=== PATIENT | female | born 1995 | race Caucasian/White ===

== ENCOUNTER 2020-02-27 01:36 | Emergency (ER) | payer MEDICAID, SELFPAY ==
[2020-02-27 01:43] VITALS: BP 117/69; PULSE 88; RESP 16; TEMP 36.4; O2SAT 99; BMI 24.3
--- NOTE | 2020-02-27 02:00 | PC.NURSE ---
UA obtained and sent. MD at bedside for primary eval.
--- NOTE | 2020-02-27 02:04 | CT_ITS ---
EXAMINATION: CT ABDOMEN AND PELVIS WITH CONTRAST CLINICAL INFORMATION: Right lower quadrant pain COMPARISON: 09/01/2018 TECHNIQUE: Multidetector volumetric images were obtained from the superior aspect of the liver through the pubic symphysis following administration 85 mL of Omnipaque 350 intravenous contrast. Sagittal and coronal reformatted images were obtained on the technologist's workstation. Oral contrast: No This CT examination was performed using dose optimization techniques as appropriate, variously including the following: *Automated exposure control *Adjustment of mA and/or kV according to patient size (this includes techniques or standardized protocols for targeted exams where dose is matched to indication/reason for exam; i.e. extremities or head) *Use of iterative reconstruction technique DLP: 361 mGy-cm FINDINGS: LUNG BASES: The visualized lung bases are unremarkable. LIVER, GALLBLADDER, AND BILIARY TREE: The liver is normal in size, shape, and attenuation. No focal hepatic lesion or biliary ductal dilatation is present. Periportal edema is noted, which may reflect patient's hydration status. The gallbladder appears partially contracted, and a component of gallbladder wall thickening versus trace pericholecystic fluid cannot be excluded. PANCREAS: Unremarkable. SPLEEN: Unremarkable. ADRENAL GLANDS: Unremarkable. KIDNEYS AND URETERS: The kidneys are normal in size, shape, and attenuation. No hydronephrosis, hydroureter, or obstructing calculi seen. No perinephric stranding. BLADDER: Unremarkable. GASTROINTESTINAL TRACT: No evidence of bowel obstruction. Assessment for wall thickening in some segments of the colon is limited due to luminal collapse, though no significant pericolonic stranding is seen to strongly suggest a colitis. Appendix appears nondilated. No free fluid or free air is seen. ABDOMINAL WALL: No significant hernia is appreciated. LYMPH NODES: Normal. VASCULAR: Unremarkable. PELVIC VISCERA: Unremarkable. OSSEOUS STRUCTURES: Unremarkable. CT/CT abdomen pelvis w con IMPRESSION: Gallbladder appears partially contracted, and a component of wall thickening or trace pericholecystic fluid is difficult to exclude. If clinically warranted, this may be further assessed with ultrasound. No additional acute findings identified.
--- NOTE | 2020-02-27 02:05 | ED.ABDPAIN ---
HPI - Abdominal Pain General Chief Complaint: Abdominal Pain Stated Complaint: ABD PAIN Time Seen by Provider: 02/27/20 02:04 Source: patient Mode of arrival: ambulatory Limitations: no limitations History of Present Illness MD elicited complaint: abdominal pain Pertinent past history: constipation Onset (ago): day(s) (yesterday AM) Pain Consistency: constant Location: RLQ and suprapubic Severity: moderate Quality: cramping Radiation: none Migration to: no migration Exacerbating factors: vomiting Relieving factors: nothing Associated symptoms: nausea, vomiting and constipation Related Data Previous Rx's Medication Instructions Recorded magnesium citrate 150 ml PO BID PRN #296 ml 02/27/20 ondansetron 4 mg PO Q8H PRN #20 tab 02/27/20 Allergies Allergy/AdvReac Type Severity Reaction Status Date / Time No Known Allergies Allergy Unverified 12/24/19 17:33 Review of Systems Review of Systems Constitutional : No Weight loss, No Fever, No Chills ENT/Mouth : No sore throat, No Rhinorrhea Eyes: No Swelling, No Redness Cardiovascular : No Chest Pain, No SOB, NoEdema Respiratory : No Cough, No Sputum, No Wheezing Gastrointestinal : Positive Nausea, Positive Vomiting, no Diarrhea, positive abdominal Pain, No Hematochezia, No Melena Genitourinary : No Dysuria, No Urinary Frequency, No Hematuria, No Urgency Musculoskeletal : No joint pain, No Myalgias, No Joint Swelling Skin : No Skin Lesions, No rash Neuro : No Weakness, No Numbness, No Dizziness, No Headache Psych : No Anxiety/Panic, No Depression Heme/Lymph: No Bruising, No Lymphadenopathy Endocrine : No Polyuria, No Polydipsia All other systems reviewed and are negative. Physical Exam Vital Signs: Vital Signs: Last Vital Signs Temp 97.6 F 02/27/20 01:43 Pulse 84 02/27/20 03:29 Resp 16 02/27/20 03:29 BP 109/76 02/27/20 03:29 Pulse Ox 99 02/27/20 01:43 Body Mass Index 24.3 Appearance: Alert. Oriented X3. No acute distress. Eyes: Pupils equal, round and reactive to light. ENT: Pharynx normal. Neck: Normal inspection. Neck supple. CVS: Normal heart rate and rhythm. Pulses normal. Respiratory: No respiratory distress. Breath sounds normal. Abdomen: Soft and ttp lower abdomen mostly RLQ no rebound or guarding Skin: Skin warm and dry. Normal skin color. Normal skin turgor. Extremities: No lower extremity edema. No calf ttp Neuro: Oriented X 3. No motor deficit. No sensory deficit. Course Reevaluation(s) Reevaluation #1: pain is lower doubt GB pathology at this time, no Cho's sign, stable for DC MDM - Abdominal Pain MDM Narrative Medical decision making narrative: 24 yo female with no sig PMH does have constipation comes in with vomiting and lower abdominal pain since yesterday, has pain in RLQ at this time will need labs, IVF, IV Toradol for pain, CT scan for appendicitis Lab Data Result diagrams: 02/27/20 02:15 02/27/20 02:15 Labs: Lab Results 02/27/20 02/27/20 02/27/20 Range/Units 01:58 01:58 02:15 WBC 9.3 (4.8-10.8) X10*3/uL RBC 4.48 (4.20-5.50) X10*6/uL Hgb 13.2 (12.0-16.0) g/dl Hct 39.0 (37-47) % MCV 87.1 (80-98) fL MCH 29.5 (27.0-33.0) pg MCHC 33.8 (31.0-35.0) g/dl RDW 12.8 (11.0-16.0) % Plt Count 353 (160-400) X10*3/uL MPV 10.2 (9.4-12.3) fL Immature Gran % (Auto) 0.4 (0.0-0.4) % Neut % (Auto) 81.5 H (45-73) % Lymph % (Auto) 12.0 L (20-40) % [place] % (Auto) 5.3 (2-11) % Eos % (Auto) 0.5 (0-4) % Baso % (Auto) 0.3 (0-2) % Lymph # (Auto) 1.1 L (1.2-4.9) X10*3/uL [place] # (Auto) 0.5 (0.1-1.2) X10*3/uL Eos # (Auto) 0.1 (0.0-0.4) X10*3/uL Baso # (Auto) 0.0 (0.0-0.2) X10*3/uL Abs Immat Gran (auto) 0.04 H (0.00-0.03) X10*3/uL Absolute Neuts (auto) 7.6 (2.0-8.3) X10*3/uL Absolute Nucleated RBC 0.000 (0.0-0.012) X10*3/uL Nucleated RBC % (auto) 0.0 (0.0-0.2) /100WBC Hold Blue Top Sodium (135-145) mmol/L Potassium (3.3-5.1) mmol/l Chloride (96-108) mmol/L Carbon Dioxide (22-29) mmol/L Anion Gap (12-20) BUN (9-16) mg/dL Creatinine (0.5-1.4) mg/dL Estim Creat Clear Calc Estimated GFR Random Glucose (60-115) mg/dL Calcium (8.4-10.2) mg/dL Magnesium (1.6-2.6) mg/dL Total Bilirubin (0.0-1.0) mg/dL Direct Bilirubin (0.0-0.5) mg/dL AST (5-31) U/L ALT (0-31) U/L Alkaline Phosphatase (39-117) U/L Total Protein (6.5-8.0) g/dL Albumin (3.5-5.0) g/dL Lipase (8-78) U/L Urine Color YELLOW Urine Appearance CLEAR Urine pH 6.0 (5.0-8.0) Ur Specific [place] 1.025 (1.005-1.025) Urine Protein NEG (NEG-TRACE) MG/DL Urine Glucose (UA) NEG (NEG) MG/DL Urine Ketones NEG (NEG) MG/DL Urine Blood NEG (NEG) Urine Nitrite NEG (NEG) Ur Leukocyte Esterase NEG (NEG) Urine Test NEGATIVE (NEGATIVE) 02/27/20 02/27/20 Range/Units 02:15 02:15 WBC (4.8-10.8) X10*3/uL RBC (4.20-5.50) X10*6/uL Hgb (12.0-16.0) g/dl Hct (37-47) % MCV (80-98) fL MCH (27.0-33.0) pg MCHC (31.0-35.0) g/dl RDW (11.0-16.0) % Plt Count (160-400) X10*3/uL MPV (9.4-12.3) fL Immature Gran % (Auto) (0.0-0.4) % Neut % (Auto) (45-73) % Lymph % (Auto) (20-40) % [place] % (Auto) (2-11) % Eos % (Auto) (0-4) % Baso % (Auto) (0-2) % Lymph # (Auto) (1.2-4.9) X10*3/uL [place] # (Auto) (0.1-1.2) X10*3/uL Eos # (Auto) (0.0-0.4) X10*3/uL Baso # (Auto) (0.0-0.2) X10*3/uL Abs Immat Gran (auto) (0.00-0.03) X10*3/uL Absolute Neuts (auto) (2.0-8.3) X10*3/uL Absolute Nucleated RBC (0.0-0.012) X10*3/uL Nucleated RBC % (auto) (0.0-0.2) /100WBC Hold Blue Top SEE NOTE Sodium 139 (135-145) mmol/L Potassium 3.7 (3.3-5.1) mmol/l Chloride 102 (96-108) mmol/L Carbon Dioxide 31 H (22-29) mmol/L Anion Gap 10 L (12-20) BUN 15 (9-16) mg/dL Creatinine 0.86 (0.5-1.4) mg/dL Estim Creat Clear Calc 82.2 Estimated GFR > 60 Random Glucose 116 H (60-115) mg/dL Calcium 9.2 (8.4-10.2) mg/dL Magnesium 2.1 (1.6-2.6) mg/dL Total Bilirubin 0.2 (0.0-1.0) mg/dL Direct Bilirubin < 0.2 (0.0-0.5) mg/dL AST 11 (5-31) U/L ALT < 6 (0-31) U/L Alkaline Phosphatase 54 (39-117) U/L Total Protein 7.4 (6.5-8.0) g/dL Albumin 4.7 (3.5-5.0) g/dL Lipase 37 (8-78) U/L Urine Color Urine Appearance Urine pH (5.0-8.0) Ur Specific [place] (1.005-1.025) Urine Protein (NEG-TRACE) MG/DL Urine Glucose (UA) (NEG) MG/DL Urine Ketones (NEG) MG/DL Urine Blood (NEG) Urine Nitrite (NEG) Ur Leukocyte Esterase (NEG) Urine Test (NEGATIVE) Discharge Plan Discharge Clinical Impression: Abdominal pain Patient Disposition: Home, Self-Care Instructions: Abdominal Pain (ED) Additional Instructions: return to ED for any worsening symptoms or concerns Prescriptions: New ondansetron 4 mg tablet,disintegrating 4 mg PO Q8H PRN (Reason: nausea and vomiting) Qty: 20 RF: 0 magnesium citrate Solution 150 ml PO BID PRN (Reason: constipation) Qty: 296 RF: 0 Referrals: [facility] [Primary Care Provider] - 2 days (if not better) [facility] Past Medical History Attestation statement: The following information was validated with the patient. Medical History No active medical problems Social History Social History (Updated 02/27/20 @ 02:06 by Millicent Francisco DO) Alcohol intake: never Smoking Status: Never smoker Advance Directives: No
[2020-02-27 02:07] LABS: Glucose Urine UA NEG (NEG); Leukocyte Esterase Urine NEG (NEG); Nitrite Urine NEG (NEG); Specific Gravity - Urine 1.025 (1.005-1.025); Urine Blood NEG (NEG); Urine Ketones NEG (NEG); Urine Protein NEG (NEG-TRACE)
[2020-02-27 02:08] LABS: Appearance Urine CLEAR; Color Urine YELLOW
[2020-02-27 02:09] LABS: UPreg QC Valid YES; Urine Pregnancy NEGATIVE (NEGATIVE)
[2020-02-27] MEDS: Ketorolac Tromethamine 30 MG/ML VIAL IVPUSH (02:16)
[2020-02-27] MEDS: 0.9 % Sodium Chloride 1,000 ML 999 ML IVCONT (02:16)
[2020-02-27] MEDS: ondansetron HCL 4 MG/2 ML VIAL IVPUSH (02:16)
--- NOTE | 2020-02-27 02:20 | PC.NURSE ---
IV established, labs obtained. IVF infusing per EMAR, pt medicated per EMAR. Continue to monitor.
[2020-02-27 02:21] LABS: Basophils Percent Auto 0.3 % (0-2); Eosinophils Absolute Auto 0.1 X10*3/uL (0.0-0.4); Eosinophils Percent Auto 0.5 % (0-4); Hemoglobin 13.2 g/dl (12.0-16.0); Imm Gran Abs Auto 0.04 X10*3/uL (0.00-0.03); Imm Gran Pct Auto 0.4 % (0.0-0.4); Lymphocytes Absolute Auto 1.1 X10*3/uL (1.2-4.9); Mean Corpuscular HGB Conc 33.8 g/dl (31.0-35.0); Mean Corpuscular Hemoglobin 29.5 pg (27.0-33.0); Mean Corpuscular Volume 87.1 fL (80-98); Mean Platelet Volume 10.2 fL (9.4-12.3); Monocytes Absolute Auto 0.5 X10*3/uL (0.1-1.2); Monocytes Percent Auto 5.3 % (2-11); Neutrophils Absolute Auto 7.6 X10*3/uL (2.0-8.3); Neutrophils Percent Auto 81.5 % (45-73); Platelet Count 353 X10*3/uL (160-400); Red Blood Count 4.48 X10*6/uL (4.20-5.50); Red Cell Distribution Width 12.8 % (11.0-16.0); White Blood Count 9.3 X10*3/uL (4.8-10.8)
[2020-02-27 02:23] LABS: MANUAL DIFF FLAG NO
[2020-02-27 02:56] LABS: Alanine Aminotransferase < 6 U/L (0-31); Albumin Level 4.7 g/dL (3.5-5.0); Alkaline Phosphatase 54 U/L (39-117); Anion Gap 10 (12-20); Aspartate Amino Transferase 11 U/L (5-31); Bilirubin Direct < 0.2 mg/dL (0.0-0.5); Bilirubin Total 0.2 mg/dL (0.0-1.0); Blood Urea Nitrogen 15 mg/dL (9-16); Calcium 9.2 mg/dL (8.4-10.2); Carbon Dioxide 31 mmol/L (22-29); Chloride 102 mmol/L (96-108); Creatinine Clr Calc Pharmacy 82.2; Estimated Glomerular Filt Rate > 60; Glucose Random 116 mg/dL (60-115); Lipase 37 U/L (8-78); Magnesium 2.1 mg/dL (1.6-2.6); Potassium 3.7 mmol/l (3.3-5.1); Sodium 139 mmol/L (135-145); Total Protein 7.4 g/dL (6.5-8.0)
--- NOTE | 2020-02-27 03:27 | PC.NURSE ---
Off to CT on hospital bed.
[2020-02-27 03:29] VITALS: BP 109/76; PULSE 84; RESP 16
[2020-02-27] MEDS: iohexoL 350 MG/ML 100 ML INFUS..BTL IV (03:42)
--- NOTE | 2020-02-27 03:51 | PC.NURSE ---
Pt reports relief of nausea, states her pain has only decreased to a 6/10. Pt ambulatory to the bathroom with a ramirez/steady gait. Awaiting CT results. Continue to monitor.
[2020-02-27 05:09] VITALS: BP 106/61; PULSE 71; RESP 16; TEMP 36.9
== END 2020-02-27 05:14 | disposition home or self-care (01) ==
PROVIDERS: Emergency Provider Emergency Medicine
DX: R10.31 Right lower quadrant pain (principal); Z79.899 Other long term (current) drug therapy
CPT/HCPCS: 36415; 74177; 80048; 80076; 81003; 81025; 83690; 83735; 85025; 96361; 96374; 96375; 99284; J1885; J2405; Q9967

== ENCOUNTER 2020-03-03 07:44 | Inpatient (IN) | payer MEDICAID, SELFPAY ==
[2020-03-03] VITALS (7 sets, daily range): BP systolic 97–131; BP diastolic 57–78; PULSE 72–84; RESP 14–18; TEMP 36.4–37.1; O2SAT 98–100; BMI 24.0
--- NOTE | 2020-03-03 08:23 | US_ITS ---
EXAMINATION: US ABDOMEN COMPLETE CLINICAL INFORMATION: Epigastric and abdominal pain. Nausea and vomiting.. COMPARISON: CT abdomen and pelvis from 02/27/2020. TECHNIQUE: Real-time imaging of the abdominal viscera. FINDINGS: PANCREAS: The pancreatic tail is obscured by bowel gas. The visualized portions of the pancreas are normal. ABDOMINAL AORTA: The proximal, mid, and distal segments are normal in caliber. INFERIOR VENA CAVA: Visualized portions are normal. LIVER: Liver has normal size, contour and parenchymal echotexture. No focal liver lesion or intrahepatic bile duct dilatation. GALLBLADDER: The gallbladder is physiologically distended. Several small mobile, nonshadowing, noncalcified stones are present within the gallbladder lumen. No gallbladder wall thickening or pericholecystic fluid. COMMON BILE DUCT: Normal in caliber measuring 0.3 cm in diameter. RIGHT KIDNEY: Normal. No hydronephrosis. No renal calculi or focal parenchymal lesions. The kidney measures 10.5 cm in maximum dimension. LEFT KIDNEY: Normal. No hydronephrosis. No renal calculi or focal parenchymal lesions. The kidney measures 10.9 cm in maximum dimension. SPLEEN: Normal. The spleen measures 10 cm in maximum dimension. FREE FLUID: None. US/US abdomen complete IMPRESSION: No acute imaging findings. Cholelithiasis without gallbladder wall thickening or pericholecystic fluid. No imaging evidence of gallbladder inflammation. No biliary tract obstruction.
[2020-03-03 08:38] LABS: Basophils Percent Auto 0.3 % (0-2); Eosinophils Percent Auto 0.3 % (0-4); Hematocrit 37.9 % (37-47); Hemoglobin 12.5 g/dl (12.0-16.0); Imm Gran Abs Auto 0.03 X10*3/uL (0.00-0.03); Imm Gran Pct Auto 0.2 % (0.0-0.4); Lymphocytes Percent Auto 7.9 % (20-40); Mean Corpuscular Volume 87.9 fL (80-98); Mean Platelet Volume 10.1 fL (9.4-12.3); Monocytes Absolute Auto 0.6 X10*3/uL (0.1-1.2); Monocytes Percent Auto 4.4 % (2-11); Neutrophils Absolute Auto 10.7 X10*3/uL (2.0-8.3); Neutrophils Percent Auto 86.9 % (45-73); Platelet Count 332 X10*3/uL (160-400); Red Blood Count 4.31 X10*6/uL (4.20-5.50); Red Cell Distribution Width 12.6 % (11.0-16.0); White Blood Count 12.4 X10*3/uL (4.8-10.8)
[2020-03-03 08:46] LABS: MANUAL DIFF FLAG NO
[2020-03-03 08:50] LABS: INTERNATIONAL NORM RATIO 1.1 (0.9-1.1); Prothrombin Time 13.5 SEC (10.8-13.0)
[2020-03-03] MEDS: 0.9 % Sodium Chloride 1,000 ML 999 ML IVCONT (08:50)
[2020-03-03] MEDS: ondansetron HCL 4 MG/2 ML VIAL IVPUSH ×2 (08:50→18:29)
[2020-03-03] MEDS: Ketorolac Tromethamine 15 MG/ML VIAL 30 MG IV (08:51)
--- NOTE | 2020-03-03 08:54 | ED_ITS ---
HPI - Abdominal Pain General Chief Complaint: Abdominal Pain Stated Complaint: abd pain Time Seen by Provider: 03/03/20 08:15 Source: patient Mode of arrival: ambulatory Limitations: no limitations History of Present Illness HPI narrative: 24yoF c No Sig PMHx presenting to the ED c c/o epigastric abd pain c associated N/V that started lastnight. Radiating to back and b/l legs. Reports she ate a slice of pizza last night. Was seen here on 02/27/20 for same complaint and had labs and CT scan of abd/pelvis. sent home with symptomatic treatment reports her pain had resolved and returned again last night. Denies any other additional complaints or concerns at this time. Related Data Previous Rx's Medication Instructions Recorded magnesium citrate 150 ml PO BID PRN #296 ml 02/27/20 ondansetron 4 mg PO Q8H PRN #20 tab 02/27/20 ibuprofen 800 mg PO Q8H PRN #14 tab 03/03/20 ondansetron HCl [Zofran] 4 mg PO Q6H PRN #14 tab 03/03/20 oxycodone 5 mg PO Q6H PRN #10 tab 03/03/20 Allergies Allergy/AdvReac Type Severity Reaction Status Date / Time No Known Allergies Allergy Verified 03/03/20 07:56 Review of Systems Review of Systems Constitutional : No Weight loss, No Fever, No Chills, No Night Sweats, No Fatigue, No Malaise Cardiovascular : No Chest Pain, No SOB Respiratory : No Cough, No Sputum, No Wheezing, No Dyspnea Gastrointestinal : + Nausea, + Vomiting, No Diarrhea, + abdominal Pain, No Hematochezia, No Melena Genitourinary : No irregular bleeding, No Dysuria, No Urinary Frequency, No Hematuria,No Urinary Incontinence, No Urgency, No Flank Pain Musculoskeletal : No joint pain, No Myalgias, No Joint Swelling Skin : No Skin Lesions, No rash Neuro : No Weakness, No Numbness, No Paresthesias, No Loss of Consciousness, No Dizziness, No Headache Psych : No Social Issues, Heme/Lymph:No Lymphadenopathy Yes all other systems are reviewed and are negative Physical Exam Vital Signs: Vital Signs: Last Vital Signs Temp 98.2 F 03/03/20 10:00 Pulse 74 03/03/20 12:08 Resp 14 03/03/20 12:08 BP 103/67 11/26/20 12:08 Pulse Ox 99 03/03/20 12:08 Body Mass Index 24.0 vital signs have been reviewed as normal and appeared to be correct. Blood pressure normal. Heart rate normal. Respiration rate normal. Temperature normal. Oxygen saturation normal. Appearance: Alert. Oriented X3. No acute distress. Head: Normal external exam. Normocephalic. Eyes: PERRLA. EOMI. Conjunctiva and sclera normal. Eyelids normal. ENT: EAC normal. TM's Normal. Pharynx normal. Uvula midline. Moist mucous membranes. Neck: Normal inspection. Neck supple. FROM. No adenopathy. Thyroid Normal. No meningeal signs. No neck mass noted. CVS: Normal heart rate and rhythm. Heart sound normal. No murmurs noted. Pulses normal throughout. Respiratory: No respiratory distress. Painless inspiration. Breath sounds normal. No wheezes/rales/rhonchi noted. Chest nontender. No accessory muscle usage noted or decreased air movement noted. Abdomen: Soft and TTP to epigastric area of abd. Bowel sounds normal in all 4 quadrants. No distention noted. No organomegaly noted. No visible injury noted. Back: No CVA tenderness. Full range of motion noted. Skin: Skin warm and dry. Normal skin color. Normal skin turgor. No rashes/lesi ons/lacerations noted. Extremities: Extremities exhibit normal range of motion. Extremities nontender. Neuro: Oriented X 3. No motor deficit. No sensory deficit. Reflexes normal. Course Course Course Narrative: 8:30AM - 24yoF c No Sig PMHx presenting to the ED c c/o epigastric abd pain c associ ated N/V that started lastnight. Radiating to back and b/l legs. - Concern for Cholecystitis. - Plan: Labs, UA, UHCG, US of abd. Provide 1 Liter of IVF's a, 4 mg of zofran and 30 mg of toradol then re-evaluate. Reevaluation(s) Reevaluation #1: white blood cell count at 12,000 otherwise all other labs are within normal limits including lipase. ultrasound of abdomen revealed cholelithiasis not acute cholecystitis. Therefore patient was complaining of 7/10 pain still therefore gave her 5 mg of oxycodone. Consulted with Dr. Rudd the General Surgeon who will come by and say hi to the patient plan will be to schedule outpatient surgery for gallbladder. Will end up being discharged on symptomatic treatment and antiemetics and surgical referral. Patient understands agrees with this plan. Time: 12:24 Reevaluation #2: patient told the general surgeon that she was not comfortable and her pain was not controlled when she would rather stay for pain control therefore patient will be admitted under General surgery by Dr. Rudd. Patient understands agrees with this plan. Time: 12:56 MDM - Abdominal Pain Medical Records Attestation: I reviewed the patient's medical records. Lab Data Attestation: I reviewed the patient's lab results. Result diagrams: 03/03/20 08:28 03/03/20 08:28 Labs: Lab Results 03/03/20 03/03/20 03/03/20 Range/Units 08:28 08:28 08:28 WBC 12.4 H (4.8-10.8) X10*3/uL RBC 4.31 (4.20-5.50) X10*6/uL Hgb 12.5 (12.0-16.0) g/dl Hct 37.9 (37-47) % MCV 87.9 (80-98) fL MCH 29.0 (27.0-33.0) pg MCHC 33.0 (31.0-35.0) g/dl RDW 12.6 (11.0-16.0) % Plt Count 332 (160-400) X10*3/uL MPV 10.1 (9.4-12.3) fL Immature Gran % (Auto) 0.2 (0.0-0.4) % Neut % (Auto) 86.9 H (45-73) % Lymph % (Auto) 7.9 L (20-40) % [place] % (Auto) 4.4 (2-11) % Eos % (Auto) 0.3 (0-4) % Baso % (Auto) 0.3 (0-2) % Lymph # (Auto) 1.0 L (1.2-4.9) X10*3/uL [place] # (Auto) 0.6 (0.1-1.2) X10*3/uL Eos # (Auto) 0.0 (0.0-0.4) X10*3/uL Baso # (Auto) 0.0 (0.0-0.2) X10*3/uL Abs Immat Gran (auto) 0.03 (0.00-0.03) X10*3/uL Absolute Neuts (auto) 10.7 H (2.0-8.3) X10*3/uL Absolute Nucleated RBC 0.000 (0.0-0.012) X10*3/uL Nucleated RBC % (auto) 0.0 (0.0-0.2) /100WBC PT 13.5 H (10.8-13.0) SEC INR 1.1 (0.9-1.1) Sodium 138 (135-145) mmol/L Potassium 3.5 (3.3-5.1) mmol/l Chloride 102 (96-108) mmol/L Carbon Dioxide 28 (22-29) mmol/L Anion Gap 12 (12-20) BUN 14 (9-16) mg/dL Creatinine 0.72 (0.5-1.4) mg/dL Estim Creat Clear Calc 97.5 Estimated GFR > 60 Random Glucose 112 (60-115) mg/dL Calcium 8.8 (8.4-10.2) mg/dL Magnesium 2.1 (1.6-2.6) mg/dL Total Bilirubin 0.2 (0.0-1.0) mg/dL Direct Bilirubin < 0.2 (0.0-0.5) mg/dL AST 9 (5-31) U/L ALT < 6 (0-31) U/L Alkaline Phosphatase 48 (39-117) U/L Total Protein 7.1 (6.5-8.0) g/dL Albumin 4.5 (3.5-5.0) g/dL Lipase 45 (8-78) U/L Imaging Data Abdominal ultrasound: Attestation: I personally reviewed and interpreted this imaging study as follows: Radiologist's impression: IMPRESSION: No acute imaging findings. Cholelithiasis without gallbladder wall thickening or pericholecystic fluid. No imaging evidence of gallbladder inflammation. No biliary tract obstruction. Critical Care Time Critical Care Time Critical Care Time: Yes Total Critical Care Time: 60 Attestation: I personally attest to this time spent taking care of the patient Discharge Plan Discharge Clinical Impression: Cholelithiasis Patient Disposition: Admitted As Inpatient Instructions: Gallstones (ED) Prescriptions: New oxycodone 5 mg tablet 5 mg PO Q6H PRN (Reason: pain) Qty: 10 RF: 0 ibuprofen 800 mg tablet 800 mg PO Q8H PRN (Reason: pain) Qty: 14 RF: 0 ondansetron HCl [Zofran] 4 mg tablet 4 mg PO Q6H PRN (Reason: nausea and vomiting) Qty: 14 RF: 0 No Action ondansetron 4 mg tablet,disintegrating 4 mg PO Q8H PRN (Reason: nausea and vomiting) Qty: 20 RF: 0 magnesium citrate Solution 150 ml PO BID PRN (Reason: constipation) Qty: 296 RF: 0 Referrals: Tod Rudd MD [Physician] - 2 days Stand Alone Forms: Work/School Release Print Language: Armenian [facility] Past Medical History Attestation statement: The following information was validated with the patient. Medical History No active medical problems Social History Social History Alcohol intake: never Smoking Status: Never smoker Use of substances other than those prescribed or required for medical reasons: No Advance Directives: No Advance Directives Information Provided: Yes
[2020-03-03 09:11] LABS: Alanine Aminotransferase < 6 U/L (0-31); Albumin Level 4.5 g/dL (3.5-5.0); Alkaline Phosphatase 48 U/L (39-117); Anion Gap 12 (12-20); Aspartate Amino Transferase 9 U/L (5-31); Bilirubin Direct < 0.2 mg/dL (0.0-0.5); Bilirubin Total 0.2 mg/dL (0.0-1.0); Blood Urea Nitrogen 14 mg/dL (9-16); Calcium 8.8 mg/dL (8.4-10.2); Carbon Dioxide 28 mmol/L (22-29); Chloride 102 mmol/L (96-108); Creatinine Clr Calc Pharmacy 97.5; Estimated Glomerular Filt Rate > 60; Glucose Random 112 mg/dL (60-115); Lipase 45 U/L (8-78); Magnesium 2.1 mg/dL (1.6-2.6); Potassium 3.5 mmol/l (3.3-5.1); Sodium 138 mmol/L (135-145); Total Protein 7.1 g/dL (6.5-8.0)
[2020-03-03] MEDS: oxyCODONE HCl Immed Release 5 MG TABLET PO (12:07)
--- NOTE | 2020-03-03 12:50 | PC.NURSE ---
dr. galarza at bedside pt aware of plan of care for admission to hosp.
--- NOTE | 2020-03-03 13:02 | PM.HPGS ---
History of Present Illness History of Present Illness Date of Service: 03/03/20 Chief complaint: abd pain Narrative: Tonya Martínez is a 24 year old female who came to the ED because of abdominal pain. She points to the area above her umbilicus on the midline where her pain is. She says she was in the ED as well last whic was 5 days ago for a similar problem. She had a CT scan done which did not suggest any pathology so she was discharged from the ED. She continued to have pain periodically at home so she came back today. She deneis any aggravating or precipitating factors. She denies any nausea or vomitting. She had an US here today whcih showed gallstones without cholecystitis. Review of Systems Constitutional: Constitutional: Denies chills and Denies fever(s) Cardiovascular: Cardiovascular: Denies chest pain, Denies dyspnea and Denies dyspnea on exertion Respiratory: Respiratory: Denies cough, Denies dyspnea and Denies dyspnea on exertion Gastrointestinal: Gastrointestinal: Denies hematochezia and Denies change in bowel habits Genitourinary: Genitourinary: Denies hematuria Musculoskeletal: Musculoskeletal: Denies back pain and Denies limited range of motion Neurologic: Denies focal weakness and Denies convulsions Psychiatric: Psychiatric: Denies depression and Denies mood swings PMFSH Past Medical History Medical History No active medical problems Family History Family history: reviewed and not pertinent Social History Social History Alcohol intake: never Smoking Status: Never smoker Use of substances other than those prescribed or required for medical reasons: No Advance Directives: No Advance Directives Information Provided: Yes Meds Allergies Allergy/AdvReac Type Severity Reaction Status Date / Time No Known Allergies Allergy Verified 03/03/20 07:56 Physical Exam Vital Signs: Vital Signs: Last Vital Signs Temp 98.2 F 03/03/20 10:00 Pulse 74 03/03/20 12:08 Resp 14 03/03/20 12:08 BP 103/67 03/03/20 12:08 Pulse Ox 99 03/03/20 12:08 Body Mass Index 24.0 Const: General: comfortable and no acute distress Orientation/consciousness: patient oriented x3 Neck: Neck: Yes no lymphadenopathy Resp: Auscultation: clear to auscultation bilaterally Cardio: Rhythm: regular rhythm GI: Other: no RUQ tenderness, no Cho's sign, mild tenderness on area above umbilicus Palpation (GI): Soft to palpation, nontender and no guarding Neuro: General: patient oriented x3 Results Results Labs: Short CBC 03/03/20 Range/Units 08:28 WBC 12.4 H (4.8-10.8) X10*3/uL Hgb 12.5 (12.0-16.0) g/dl Hct 37.9 (37-47) % Plt Count 332 (160-400) X10*3/uL BMP 03/03/20 08:28 Sodium 138 Potassium 3.5 Chloride 102 Carbon Dioxide 28 BUN 14 Creatinine 0.72 Calcium 8.8 Liver Function 03/03/20 Range/Units 08:28 Total Bilirubin 0.2 (0.0-1.0) mg/dL Direct Bilirubin < 0.2 (0.0-0.5) mg/dL AST 9 (5-31) U/L ALT < 6 (0-31) U/L Alkaline Phosphatase 48 (39-117) U/L Albumin 4.5 (3.5-5.0) g/dL CT scan - pelvis: image reviewed Abdominal ultrasound report/results: image reviewed Assessment and Plan (1) Cholelithiasis: Status: Acute 24F with abdominal pain, above the umbilicus, with an US showing gallstones without cholecystitis. She does have some mild leukocytosis but otherwise does not have signficant tenderness or Cho's sign. Her pain is quite atypical for gallbladder disease, but she says she does not want to go home now in view of her anxiety about the pain coming back. I explained to her that if her pain persists, we may proceed with cholecystectomy in the absence of any other pathology. I reviewed with her the technique of laparoscopic cholecystectomy, possible open. I reviewed with her the risks including but not limited to bleeding, infections, bowel injury, injury to the bile duct and liver, as well as the benefits and alternatives. We will revaluate her tomorrow morning and review her options with her. I will follow her LFTs as well, along with her WBC. I will hold off on antibiotics at this time. I have discussed the above with her mother over the phone.
[2020-03-03] MEDS: Omeprazole 20 MG CAPSULE.DR PO ×2 (13:33→19:26)
[2020-03-03] MEDS: Lactated Ringers 1,000 ML 80 ML IVCONT ×2 (13:38→23:47)
--- NOTE | 2020-03-03 14:27 | PC.NURSE ---
nurse to nurse given to ronit esposito).
[2020-03-03 14:52] LABS: COVID-19 Test Negative (Negative)
[2020-03-03] MEDS: Morphine Sulfate 2 MG/ML CARTRIDGE 1 MG IVPUSH ×2 (16:28→19:32)
[2020-03-04] VITALS (11 sets, daily range): BP systolic 94–137; BP diastolic 44–70; PULSE 68–99; RESP 16–28; TEMP 36.4–36.9; O2SAT 96–99
[2020-03-04 01:52] LABS: Alanine Aminotransferase < 6 U/L (0-31); Albumin Level 3.9 g/dL (3.5-5.0); Alkaline Phosphatase 41 U/L (39-117); Aspartate Amino Transferase 9 U/L (5-31); Bilirubin Direct 0.2 mg/dL (0.0-0.5); Bilirubin Total 0.3 mg/dL (0.0-1.0); Total Protein 6.1 g/dL (6.5-8.0)
[2020-03-04] MEDS: Morphine Sulfate 2 MG/ML CARTRIDGE 1 MG IVPUSH ×4 (07:54→22:51)
[2020-03-04 08:03] LABS: Amylase 39 U/L (28-100); Anion Gap 13 (12-20); Blood Urea Nitrogen 5 mg/dL (9-16); Calcium 8.3 mg/dL (8.4-10.2); Carbon Dioxide 26 mmol/L (22-29); Chloride 103 mmol/L (96-108); Creatinine Clr Calc Pharmacy 104.8; Estimated Glomerular Filt Rate > 60; Glucose Random 61 mg/dL (60-115); Potassium 3.8 mmol/l (3.3-5.1); Sodium 138 mmol/L (135-145)
--- NOTE | 2020-03-04 08:15 | PM.EVENT ---
Event Note Date of Service: 03/04/20 Event Note: describes persistent epigastric pain, entire area above umbilicus Ct does not show any other pathology except for gallstones no signs of CBD osbtruction, pancreatic inflammation bili normal reviewed with her option of lap kelby, as well as risks, benefits and alternatives she wants to proceed she understands small chance her pain may not be secondary to gallbladder disease mother Jaqueline porfirio
--- NOTE | 2020-03-04 08:37 | MHC.CM.PN ---
Female 24 DX Cholilithiasis. Patient is scheduled for surgery today (Lap Choli). She lives with family. She is independent all functional mobility. DP home with family. No services required. Family will provided transport home. NO HCP on file. Pt educated on HCP. She declines at this time. The Patient was instructed that a HCP can be completed at any time during hospitalization. CM will follow.
--- NOTE | 2020-03-04 08:51 | HO.ANESPROP2 ---
FORMERLY [facility] Past Medical History Medical History No active medical problems Social History Social History Housing: Apartment Do you presently have visiting nurse or other home services: No Alcohol intake: never Smoking Status: Never smoker Use of substances other than those prescribed or required for medical reasons: No Currently Displaying Signs/Symptoms of Drug Intoxication Withdrawal: No Have you been hit, kicked, punched, or otherwise hurt by someone within the past year? If so, by whom?: No Do you feel safe in your current relationship?: No Current Relationship Is there a partner from a previous relationship who is making you feel unsafe now?: No Are you made to feel afraid or neglected: No Advance Directives: No Advance Directives Information Provided: Yes Do you have thoughts of harming others: None Do you have a plan to hurt others: No Plan Recently lost weight without trying: No service: No Current occupational status: unemployed Meds Allergies Allergy/AdvReac Type Severity Reaction Status Date / Time No Known Allergies Allergy Verified 03/03/20 07:56 Home Medications Medication Instructions Recorded Confirmed Type No Known Home Meds 03/03/20 03/03/20 History Exam Exam Date and Time: March 04, 2020 0851 Height,Weight and Vital Signs: Height 5 ft 1 in Weight 57.606 kg Last Vital Signs Temp 98.0 F 03/04/20 08:30 Pulse 68 03/04/20 08:30 Resp 16 03/04/20 08:30 BP 112/70 03/04/20 08:30 Pulse Ox 99 03/04/20 08:30 Pertinent Lab Results Pertinent Lab Results: Laboratory Tests 03/03/20 03/03/20 03/03/20 08:28 08:28 08:28 WBC 12.4 H RBC 4.31 Hgb 12.5 Hct 37.9 MCV 87.9 MCH 29.0 MCHC 33.0 RDW 12.6 Plt Count 332 MPV 10.1 Immature Gran % (Auto) 0.2 Neut % (Auto) 86.9 H Lymph % (Auto) 7.9 L [place] % (Auto) 4.4 Eos % (Auto) 0.3 Baso % (Auto) 0.3 Lymph # (Auto) 1.0 L [place] # (Auto) 0.6 Eos # (Auto) 0.0 Baso # (Auto) 0.0 Abs Immat Gran (auto) 0.03 Absolute Neuts (auto) 10.7 H Absolute Nucleated RBC 0.000 Nucleated RBC % (auto) 0.0 PT 13.5 H INR 1.1 Sodium 138 Potassium 3.5 Chloride 102 Carbon Dioxide 28 Anion Gap 12 BUN 14 Creatinine 0.72 Estim Creat Clear Calc 97.5 Estimated GFR > 60 Random Glucose 112 Calcium 8.8 Magnesium 2.1 Total Bilirubin 0.2 Direct Bilirubin < 0.2 AST 9 ALT < 6 Alkaline Phosphatase 48 Total Protein 7.1 Albumin 4.5 Amylase Lipase 45 COVID-19 (DIETER) COVID-19 Clin Com 03/03/20 03/04/20 03/04/20 14:30 01:13 05:21 WBC RBC Hgb Hct MCV MCH MCHC RDW Plt Count MPV Immature Gran % (Auto) Neut % (Auto) Lymph % (Auto) [place] % (Auto) Eos % (Auto) Baso % (Auto) Lymph # (Auto) [place] # (Auto) Eos # (Auto) Baso # (Auto) Abs Immat Gran (auto) Absolute Neuts (auto) Absolute Nucleated RBC Nucleated RBC % (auto) PT INR Sodium 138 Potassium 3.8 Chloride 103 Carbon Dioxide 26 Anion Gap 13 BUN 5 L D Creatinine 0.67 Estim Creat Clear Calc 104.8 Estimated GFR > 60 Random Glucose 61 D Calcium 8.3 L Magnesium Total Bilirubin 0.3 Direct Bilirubin 0.2 AST 9 ALT < 6 Alkaline Phosphatase 41 Total Protein 6.1 L Albumin 3.9 Amylase 39 Lipase COVID-19 (DIETER) Negative COVID-19 Clin Com See Note Airway Mallampati Class: I TM Dist: >3cm Neck ROM: Full Heart: RRR Lungs: CTA
--- NOTE | 2020-03-04 10:15 | PM.OP ---
Brief Operative Note Date of Service: 03/04/20 Pre-op diagnosis: gallstones Post-op diagnosis: same Procedure: laparoscopic cholecystectomy Surgeon: Tod Rudd MD Anesthesia: GETA Estimated blood loss (mL): 20 Pathology: other (GB) Condition: stable Disposition: PACU
--- NOTE | 2020-03-04 10:40 | PM.EVENT ---
Event Note Date of Service: 03/04/20 Event Note: seen postop underwent lap kelby earlier - uneventful stable VS looks well pain mgt likely home tomorrow mother Jaqueline updated by phone
[2020-03-04] MEDS: oxyCODONE HCl Immed Release 5 MG TABLET PO (10:55)
--- NOTE | 2020-03-04 11:49 | OP_ITS ---
SURGEON: Tod Rudd MD INDICATIONS: The patient is a 24-year-old female who has had periodic epigastric pain for about 5-6 days. She actually had been in the ER 5 days prior to her current admission because of her epigastric pain. She was sent home after CAT scan did not show any significant pathology. She came back yesterday because of periodic pain. She had an ultrasound done which showed gallstones without cholecystitis. The rest of her labs were essentially unremarkable. In the absence of any other pathology, I did offer to her the option of proceeding with cholecystectomy for her epigastric pain. She understood that her pain is not typical for gallbladder disease. She understood the risks including, but not limited to bleeding, infections, bowel injury, bile leak, cystic bile duct injury, persistent pain as well as benefits and alternatives and she had given consent. I had discussed the plan with her mother Shaw as well. PREOPERATIVE DIAGNOSIS: Epigastric pain with gallstones. POSTOPERATIVE DIAGNOSIS: Epigastric pain with gallstones. PROCEDURE PERFORMED: Laparoscopic cholecystectomy. ESTIMATED BLOOD LOSS: COMPLICATIONS: ANESTHESIA: ASSISTANTS: SPECIMENS: DESCRIPTION OF PROCEDURE: She was brought to the operating room, placed supine on the table under general anesthesia via endotracheal tube. The abdomen was prepped and draped in usual sterile fashion. A surgical time-out was done. The patient received cefazolin 2 g IV preoperatively. A small supraumbilical incision made in the skin using blade #15 and this carried down to full-thickness skin and subcutaneous fat down to the fascia. The fascia was incised. The peritoneum was entered and through this incision, a Tonya port was introduced. Pneumoperitoneum was introduced to a pressure of 15 mmHg. From here on, the rest of procedure was done under vision of the laparoscope. A 5/12 mm port introduced through a small incision in the epigastric area. A 5 mm port was introduced in a small incision below the subcostal margin along the anterior axillary line and the midclavicular line. Graspers were placed through these working ports. The patient was placed in head-up and [id number] position. Stomach was distended, so we had an OG tube placed to decompress this. This allowed us good visualization of the upper abdomen. Examination of the right upper quadrant showed the gallbladder to be covered with filmy adhesions and omentum. I was able to place a grasper at the fundus and this was used to retract the gallbladder cephalad. By doing so, we were able to carefully strip down the these adhesions with [place] dissector until we were able to completely expose the anterior wall. This suggested chronic cholecystitis. I was able to therefore apply another grasper towards the pouch of the gallbladder and this was used to retract the gallbladder laterally. At this point, the gallbladder was being retracted in a cephalad and lateral fashion to put the cystic duct on stretch. I was able to clearly see the cystic duct. I had to dissect this carefully with the [place] dissector in view of the presence of fibrous and areolar tissue. I carefully dissected this until I was able to confirm its confluence with the neck of the gallbladder. By doing so, we were able to achieve a critical view of the hepatocystic triangle as well. The cystic artery was also seen running adjacent to this. With good identification of the cystic duct achieved, we proceeded to apply clips with 2 clips applied distally. The cystic duct was transected with clips. With traction on the gallbladder wall away from the liver bed, proceeded to gently dissect the cystic artery as well to carefully define this. Once this was clearly defined, proceeded to apply clips again with 2 clips being applied distally and the cystic artery was transected between clips. With traction on the gallbladder wall away from the liver bed, proceeded to carefully divide across the hilum using the [place] dissector until we were able to reach the interface of the gallbladder and the liver bed. I used the electrocautery spatula to incise the peritoneum of the gallbladder wall and defined the plane of dissection between the gallbladder wall and the liver bed. I proceeded to gently separate the gallbladder wall from the liver bed along a well-defined plane using careful blunt dissection with the tip of the spatula as well as with electrocautery. We proceeded this dissection all the way to the fundus until the entire gallbladder was completely . The gallbladder was retrieved through an Endobag through the umbilical incision. Reinserted all ports and re-insufflated. I examined the subhepatic space. There was no evidence of any bleeding or any bile leak. The clips appeared intact. I observed all four quadrants. The colon was slightly distended at the area of the cecum in the right side, but other than that, there was no other pathology seen. There was no evidence of any bowel injury as well. Once hemostasis was confirmed with direct visualization by lifting the liver, proceeded to then desufflate the port sites. We removed all ports. The umbilical port was removed last. The fascia of the incision was closed with [id number] Dexon 0 stitch. Skin closure was achieved in all incisions using Dexon 4-0 subcuticular running sutures. Steri-Strips and dressings were applied. All incisions were infiltrated with Marcaine 0.5% for postop analgesia and the procedure was completed. The patient tolerated the procedure well. There were no complications noted. Initial and final counts of sponges and instruments were correct. Estimated blood loss was about 20 mL. The patient extubated without difficulty and transferred to recovery room with stable vital signs. MD DAVID Kelly/RYDER / [id number]
[2020-03-04] MEDS: Lactated Ringers 1,000 ML 80 ML IVCONT ×2 (12:38→23:26)
[2020-03-04] MEDS: Omeprazole 20 MG CAPSULE.DR PO (20:19)
[2020-03-04] MEDS: ondansetron HCL 4 MG/2 ML VIAL IVPUSH (23:20)
[2020-03-04] MEDS: Acetaminophen 325 MG TABLET 650 MG PO (23:40)
[2020-03-05] MEDS: Omeprazole 20 MG CAPSULE.DR PO (08:17)
--- NOTE | 2020-03-05 09:07 | PM.PNGS ---
Subjective Subjective Date of Service: 03/05/20 Interval history: 24-year-old female status post laparoscopic cholecystectomy yesterday for abdominal pain, gallstones. The patient tolerated the procedure well and feels well this morning. She does report incisional pain and pain in the left upper quadrant. She was over the some food yesterday but did have an episode of vomiting. She feels improved today with no nausea. Physical Exam Vital Signs: Vital Signs: Last Vital Signs Temp 98.2 F 03/04/20 23:38 Pulse 78 03/04/20 23:38 Resp 19 03/04/20 23:38 BP 104/53 L 03/04/20 23:38 Pulse Ox 98 03/04/20 23:38 Body Mass Index 24.0 Const: General: cooperative, healthy appearing, comfortable and no acute distress Eyes: Sclerae: sclerae normal Resp: Effort & Inspection: normal respiratory effort, no cough and no stridor Auscultation: clear to auscultation bilaterally GI: Inspection: Yes normal to inspection Palpation (GI): Soft to palpation and Tenderness to palpation present (GI) in the LUQ Auscultation: normal bowel sounds Skin: General skin exam: no rashes or lesions noted Extrem: General: Yes full ROM and Yes no clubbing, cyanosis or edema Progress Note: A&P Assessment and plan (1) Cholelithiasis: Status: Acute Assessment and Plan: Postop day 1 status post laparoscopic cholecystectomy. Patient remains hemodynamically stable and her abdominal wounds are clean and intact. Will see how she does with breakfast this morning, and if this is well tolerated she may be able to be discharged to home later today. The patient understands and agrees with the plan. Fall Risk Details Current Medications: Current Medications Generic Name Dose Route Start Last Admin Trade Name Freq PRN Reason Stop Dose Admin Acetaminophen 650 mg 03/04/20 23:02 03/04/20 23:40 Acetaminophen 325 Mg Tablet PO 650 mg Q6H PRN Administration Headache Lactated Ringer's 1,000 mls @ 80 mls/hr 03/03/20 13:15 03/04/20 23:26 Lr IVCONT 80 mls/hr .[id number] ERIC Administration Morphine Sulfate 1 mg 03/03/20 13:14 03/04/20 22:51 Morphine Sulfate 2 Mg/Ml Cartridge IVPUSH 1 mg Q3H PRN Administration pain Omeprazole 20 mg 03/03/20 13:30 03/05/20 08:17 Omeprazole 20 Mg Capsule.Dr PO 20 mg BID ERIC Administration Ondansetron HCl 4 mg 03/03/20 13:23 03/04/20 23:20 Ondansetron Hcl 4 Mg/2 Ml Vial IVPUSH 4 mg Q6H PRN Administration Nausea Oxycodone HCl 5 mg 03/03/20 13:14 Oxycodone Hcl Immed Release 5 Mg Tablet PO Q4H PRN PAIN Time Spent With Patient Time: Total time spent is greater than 50% in coordination of care (as documented) at patient's floor/unit and/or counseling patient: Time with patient: 15 - 24 minutes
--- NOTE | 2020-03-05 09:14 | MHC.CM.PN ---
NURSE [employer]INEERING OFFICER NOTE ELECTRONIC MEDICAL RECORD REVIEWED ALONG WITH CASE DISCUSSED WITH STAFF NRUSE PATIENT IS S/P LAPAROSCOPIC CHOLECSTECTMY FOR ABDOMINAL PAIN AND GALLSTONES. PLAN PER DOCUMENTATIONS IV MORPHINE PRN CONVERTING TO ORAL ANALGEICS, IV FLUIDS, IV ZOFRAN PRN FOR NAUSEA /EMESIS DISCHARGE [place] HOME WITH NO SERVICES PCP AT THE [facility] PATIENT INSTRUCED TO [facility] FOR POST HOSPITLA DISCHARGE FOLLOW UP TRANSPORTATION PATIENT TO SELF ARRANGE
--- NOTE | 2020-03-05 10:53 | MHC.CM.NN ---
nurse animal caregiver note electronic medical record reviewed along with case discussed with staff nurse , patient will be discharge home today and is aware of this discharge plan home no services pcp patient instructed to call for post hospital discharge follow up transportation patient to self arrange surgical follow up per discharge instructions
--- NOTE | 2020-03-06 09:54 | HO.POSTANES ---
Post Anesthesia Evaluation Post Anesthesia Evaluation Anesthesia: General Endotracheal-GETA Mental Status: Awake Pain Control: Satisfactory Nausea/Vomiting: None Hydration: Adequate Anesthesia-Related Issues: No Anes. Related Issues
--- NOTE | 2020-03-07 10:52 | P.DS_ITS ---
DS: Providers Provider Date of admission: 03/03/20 13:48 Primary care physician: [facility] DS: Diagnosis Discharge Diagnosis (1) Cholelithiasis: Status: Acute DS: Medications Discharge Medications Home Medications: Previous Rx's Medication Instructions Recorded omeprazole magnesium [Prilosec OTC] 20 mg PO BID #60 tab 03/04/20 oxycodone 5 mg PO Q6H PRN #14 tab 03/05/20 DS: Summary Hospital Course Hospital Course: Brief HPI: Tonya Martínez is a 24 year old female who came to the ED because of abdominal pain. She points to the area above her umbilicus on the midline where her pain is. She says she was in the ED as well last which was 5 days ago for a similar problem. She had a CT scan done which did not suggest any pathology so she was discharged from the ED. She continued to have pain periodically at home so she came back today. She denies any aggravating or precipitating factors. She denies any nausea or vomitting. She had an US which showed gallstones without evidence of cholecystitis. Her pain is quite atypical for gallbladder disease, but she says she does not want to go home now in view of her anxiety about the pain coming back. She was therefore admitted overnight for observation. Her pain persisted and it was decided to proceed with laparoscopic cholecystectomy, possible open. She was added onto to OR schedule for that day. Hospital course: On 03/04/20, a laparoscopic cholecystectomy was performed by Dr. Tod Rudd without complication. The patient tolerated the procedure well and was admitted back to the floor for observation. She had an uncomplicated post operative course. On POD #1, she felt improved, her pain was well controlled and she was tolerating a solid diet. Her abdomen was benign with appropriate post op tenderness and dressings c/d/i. She felt ready for discharge and was discharged to home on 03/05/20 in stable condition. She is to follow up in the office with Dr. Rudd. Status at Discharge Functional status at discharge: independent ambulation Overall status at discharge: patient is progressing back to baseline Time Spent with Patient Time attestation: Total time spent providing and/or coordinating discharge services: Physical Exam Vital Signs: Vital Signs: Last Vital Signs Temp 98.2 F 03/04/20 23:38 Pulse 78 03/04/20 23:38 Resp 19 03/04/20 23:38 BP 104/53 L 03/04/20 23:38 Pulse Ox 98 03/04/20 23:38 Body Mass Index 24.0 Const: General: comfortable, no acute distress and alert Orientation/consci ousness: patient oriented x3 Resp: Effort & Inspection: normal respiratory effort Cardio: Rate: regular rate GI: Inspection: No distended and Yes other (dressings c/d/i) Palpation (GI): Soft to palpation, Tenderness to palpation present (GI) (mild, incisional), no guarding and not rigid Skin: General skin exam: no rashes or lesions noted Neuro: General: patient oriented x3 DS: Data Data Completed and Pending Completed studies during hospitalization [Text1]: Procedures Resection of Gallbladder, Percutaneous Endoscopic Approach (03/03/20) Pending studies at discharge: Pending at discharge 03/04/20 09:52 Surgical [PTH] Routine Labs on day of discharge: 03/03/20 08:23 US abdomen complete Stat 03/03/20 08:28 Basic Metabolic Panel Stat Complete Blood Count Auto Diff Stat Lipase Stat Liver Panel Stat Magnesium Stat Prothrombin Time INR Stat 03/03/20 08:32 0.9 % Sodium Chloride [Ns] 1,000 ml IVCONT 999 mls/hr Ketorolac Tromethamine [Toradol] 30 mg IV ONCE ONE ondansetron HCL [Zofran] 4 mg IVPUSH ONCE ONE 03/03/20 11:05 oxyCODONE HCl Immed Release [Roxicodone] 5 mg PO ONCE ONE 03/03/20 12:54 Consult Rx Perform Med Rec 1 each MISCELLANE ONCE PRN 03/03/20 13:14 Morphine Sulfate 1 mg IVPUSH Q3H PRN oxyCODONE HCl Immed Release [Roxicodone] 5 mg PO Q4H PRN 03/03/20 13:15 Lactated Ringers [Lr] 1,000 ml IVCONT 80 mls/hr 03/03/20 13:17 Compression Therapy QSHIFT Up ad nikolay .prn 03/03/20 13:19 Vital Signs Q6-8H 03/03/20 13:23 ondansetron HCL [Zofran] 4 mg IVPUSH Q6H PRN 03/03/20 13:30 Omeprazole [PriLOSEC] 20 mg PO BID 03/03/20 14:30 COVID-19 ID NOW (Ross) Stat 03/03/20 Lunch Clear Liquid Diet 03/04/20 01:13 Liver Panel Routine 03/04/20 05:21 Amylase Routine Basic Metabolic Panel Routine 03/04/20 08:06 Lidocaine HCl 2 % MPF [Xylocaine 2 % MPF] 5 ml .ROUTE .STK-MED ONE Rocuronium [place] [Zemuron] 100 mg IV .STK-MED ONE Sugammadex Sodium [Bridion] 200 mg IVPUSH .STK-MED ONE dexAMETHasone sod phosphate [Decadron] 4 mg .ROUTE .STK-MED ONE ondansetron HCL [Zofran] 4 mg .ROUTE .STK-MED ONE propofoL [Diprivan] 200 mg IVPUSH .STK-MED ONE 03/04/20 08:07 Bupivacaine MPF 0.25 % [Sensorcaine-MPF 0.25% 10 ML] 10 ml .ROUTE .STK-MED ONE Lidocaine HCl 1 % MPF [Xylocaine 1 % MPF] 5 ml .ROUTE .STK-MED ONE 03/04/20 08:10 Midazolam HCl/PF [Versed] 2 mg .ROUTE .STK-MED ONE fentaNYL citrate/PF [Sublimaze] 50 mcg .ROUTE .STK-MED ONE 03/04/20 08:17 cefoTEtan disod/Dextrose,Iso [Cefotan] 2 gm in 50 ml IV PREOP 03/04/20 08:28 cefoTEtan disodium [Cefotan] 2 gm .ROUTE .STK-MED ONE 03/04/20 09:03 Ketamine HCl/NS 50 mg IVPUSH .STK-MED ONE 03/04/20 09:23 Continuous pulse oximetry CONT Vital Signs Q1H Vital Signs Q5MIN fentaNYL citrate/PF [Sublimaze] 25 mcg IVPUSH Q5M PRN ondansetron HCL [Zofran] 4 mg IVPUSH ONCE PRN oxyCODONE HCl Immed Release [Roxicodone] 5 mg PO ONCE PRN 03/04/20 09:48 Glycopyrrolate [Robinul] 0.2 mg .ROUTE .STK-MED ONE 03/04/20 10:16 Transfer Order Routine 03/04/20 10:56 oxyCODONE HCl Immed Release [Roxicodone] 5 mg .ROUTE .STK-MED ONE 03/04/20 Lunch Clear Liquid Diet 03/04/20 23:02 Acetaminophen [Tylenol] 650 mg PO Q6H PRN Laboratory Last Values WBC 12.4 X10*3/uL (4.8-10.8) H 03/03/20 08:28 RBC 4.31 X10*6/uL (4.20-5.50) 03/03/20 08:28 Hgb 12.5 g/dl (12.0-16.0) 03/03/20 08:28 Hct 37.9 % (37-47) 03/03/20 08: MCV 87.9 fL (80-98) 03/03/20 08: MCH 29.0 pg (27.0-33.0) 03/03/20 08: MCHC 33.0 g/dl (31.0-35.0) 03/03/20 08: RDW 12.6 % (11.0-16.0) 03/03/20 08:28 Plt Count 332 X10*3/uL (160-400) 03/03/20 08:28 MPV 10.1 fL (9.4-12.3) 03/03/20 08: Immature Gran % (Auto) 0.2 % (0.0-0.4) 03/03/20 08: Neut % (Auto) 86.9 % (45-73) H 03/03/20 08: Lymph % (Auto) 7.9 % (20-40) L 03/03/20 08: [place] % (Auto) 4.4 % (2-11) 03/03/20 08:28 Eos % (Auto) 0.3 % (0-4) 03/03/20 08: Baso % (Auto) 0.3 % (0-2) 03/03/20 08: Lymph # (Auto) 1.0 X10*3/uL (1.2-4.9) L 03/03/20 08:28 [place] # (Auto) 0.6 X10*3/uL (0.1-1.2) 03/03/20 08: Eos # (Auto) 0.0 X10*3/uL (0.0-0.4) 03/03/20 08:28 Baso # (Auto) 0.0 X10*3/uL (0.0-0.2) 03/03/20 08:28 Abs Immat Gran (auto) 0.03 X10*3/uL (0.00-0.03) 03/03/20 08:28 Absolute Neuts (auto) 10.7 X10*3/uL (2.0-8.3) H 03/03/20 08:28 Absolute Nucleated RBC 0.000 X10*3/uL (0.0-0.012) 03/03/20 08:28 Nucleated RBC % (auto) 0.0 /100WBC (0.0-0.2) 03/03/20 08:28 PT 13.5 SEC (10.8-13.0) H 03/03/20 08:28 INR 1.1 (0.9-1.1) 03/03/20 08:28 Sodium 138 mmol/L (135-145) 03/04/20 05:21 Potassium 3.8 mmol/l (3.3-5.1) 03/04/20 05:21 Chloride 103 mmol/L (96-108) 03/04/20 05:21 Carbon Dioxide 26 mmol/L (22-29) 03/04/20 05:21 Anion Gap 13 (12-20) 03/04/20 05:21 BUN 5 mg/dL (9-16) L D 03/04/20 05:21 Creatinine 0.67 mg/dL (0.5-1.4) 03/04/20 05:21 Estim Creat Clear Calc 104.8 03/04/20 05:21 Estimated GFR > 60 03/04/20 05:21 Random Glucose 61 mg/dL (60-115) D 03/04/20 05:21 Calcium 8.3 mg/dL (8.4-10.2) L 03/04/20 05:21 Magnesium 2.1 mg/dL (1.6-2.6) 03/03/20 08:28 Total Bilirubin 0.3 mg/dL (0.0-1.0) 03/04/20 01:13 Direct Bilirubin 0.2 mg/dL (0.0-0.5) 03/04/20 01:13 AST 9 U/L (5-31) 03/04/20 01:13 ALT < 6 U/L (0-31) 03/04/20 01:13 Alkaline Phosphatase 41 U/L (39-117) 03/04/20 01:13 Total Protein 6.1 g/dL (6.5-8.0) L 03/04/20 01:13 Albumin 3.9 g/dL (3.5-5.0) 03/04/20 01:13 Amylase 39 U/L (28-100) 03/04/20 05:21 Lipase 45 U/L (8-78) 03/03/20 08:28 COVID-19 (DIETER) Negative (Negative) 03/03/20 14:30 COVID-19 Clin Com See Note 03/03/20 14:30 Discharge Plan Discharge Patient Disposition: Home, Self-Care Referrals: [facility] [Primary Care Provider] - Tod Rudd MD [Physician] - 2 days Discharge Medications: New omeprazole magnesium [Prilosec OTC] 20 mg tablet,delayed release (DR/EC) 20 mg PO BID Qty: 60 RF: 0 oxycodone 5 mg tablet 5 mg PO Q6H PRN (Reason: pain) Qty: 14 RF: 0 Discharge Orders: Discharge Order (Routine); Ordered 03/05/20 Ordered By: Tj Yu Diet: low fat, low cholesterol Activity on Discharge: No heavy lifting Patient Instructions: Gallstones (ED) Stand Alone Forms: Work/School Release Discharge Date/Time: 03/05/20 12:45 Print Language: Belgian Activity Restrictions/Additional Instructions: NO lifting more than 20 lbs OK to shower, change dressings with BandAids after 24 hours ffup in office in 2-3 weeks - call [phone] for appointment Visit Report Forms: Patient Portal Discharge page Care Plan Goals: pain control Health Concerns: pain control postop wound care Plan of Treatment: ffup in office for postop check
== END 2020-03-05 12:45 | disposition home or self-care (01) | DRG 263 ==
LOC: HO.ED 12:57 → HO.IMC 13:49 → HO.S3 03-04 17:54
PROVIDERS: Physician Assistant Medical; Admitting Provider Surgery; Emergency Provider Emergency Medicine Emergency Medical Services; Visit Provider Surgery
PROC: 0FT44ZZ Resection of Gallbladder, Percutaneous Endoscopic Approach (ICD-10-PCS; CPT 47562; principal; 2020-03-04 08:25)
DX: K80.20 Calculus of gallbladder without cholecystitis without obstruction (principal); Z20.828 Contact with and (suspected) exposure to other viral communicable diseases
CPT/HCPCS: 47562; 36415; 76700; 80048; 80076; 82150; 83690; 83735; 85025; 85610; 87635; 88304; 96361; 96374; 96375; 99024; 99285; 99291; J1100; J1885; J2250; J2270; J2405; J3010

== ENCOUNTER → 2020-03-14 11:23 | Outpatient (BNVA) | payer MEDICAID, SELFPAY | PROVIDERS: PCP Nurse Practitioner Family; Visit Provider Surgery | DX: K80.20 Calculus of gallbladder without cholecystitis without obstruction (principal) | CPT/HCPCS: 99212 ==

== ENCOUNTER 2020-05-03 13:09 | Outpatient (REF) | payer MEDICAID, SELFPAY | END 2020-05-03 13:10 | disposition home or self-care (01) | LOC: HO.LAB 13:09 | PROVIDERS: Visit Provider Internal Medicine | DX: Z20.822 Contact with and (suspected) exposure to COVID-19 (principal) | CPT/HCPCS: 36415; C9803; U0003 ==

== ENCOUNTER 2020-07-14 19:04 | Emergency (ER) | payer MEDICAID, SELFPAY ==
[2020-07-14 20:53] VITALS: BP 115/63; PULSE 77; RESP 18; TEMP 36.6; O2SAT 99; BMI 24.7
[2020-07-14] MEDS: Tetracaine HCl/PF 0.5% Oph Sol 4 ML DROPS 3 DROP EYE-BOTH (21:11)
--- NOTE | 2020-07-14 21:13 | ED.GENADULT ---
HPI - General Adult General Chief complaint: General Medical Stated complaint: Eye and ear pain Time Seen by Provider: 07/14/20 21:07 Source: patient Mode of arrival: ambulatory Limitations: no limitations History of Present Illness HPI narrative: 25-year-old female came in with 1 day history of right eye pain and right ear pain. No blurred vision, patient declined using contact lens, patient has been using her glasses, patient describes the pain as pressure behind the right eye and radiates to the right jaw area. Patient also has been complaining of a runny nose. Related Data Previous Rx's Medication Instructions Recorded omeprazole magnesium [Prilosec OTC] 20 mg PO BID #60 tab 03/04/20 oxycodone 5 mg PO Q6H PRN #14 tab 03/05/20 amoxicillin-pot clavulanate 1 tab PO BID #14 tab 07/14/20 [Augmentin] ciprofloxacin HCl See Rx Instructions .ROUTE 07/14/20 .COMPLEX #10 ml Allergies Allergy/AdvReac Type Severity Reaction Status Date / Time No Known Allergies Allergy Verified 07/14/20 20:53 Review of Systems Review of Systems: All other systems are reviewed and are negative Constitutional: Reports as per HPI and Reports no additional constitutional complaints Eyes: Reports as per HPI and Reports no additional eye complaints Reports system reviewed and no additional complaints, except as documented Cardiovascular: Reports as per HPI and Reports no additional cardiovascular complaints Respiratory: Reports as per HPI and Reports no additional respiratory complaints Gastrointestinal: Reports as per HPI and Reports no additional gastrointestinal complaints Genitourinary: Reports no additional female genitourinary complaints Musculoskeletal: Reports no additional musculoskeletal complaints Skin/Breast: Reports system reviewed and no additional complaints, except as docu Psychiatric: Reports no additional psychiatric complaints Endocrine: Reports no additional endocrine complaints Hematologic/Lymphatic: Reports no additional hematologic/lymphatic complaints Allergic/Immunologic: Reports no additional allergic/immunologic complaints Reports system reviewed and no additional complaints, except as documented and Reports Abnormal speech present [facility] Past Medical History Medical History No active medical problems Social History Social History Housing: Apartment Alcohol intake: never Smoking Status: Never smoker Use of substances other than those prescribed or required for medical reasons: No Advance Directives: No service: No Current occupational status: unemployed Physical Exam Vital Signs: Vital Signs: Last Vital Signs Temp 97.8 F 07/14/20 20:53 Pulse 77 07/14/20 20:53 Resp 18 07/14/20 20:53 BP 115/63 07/14/20 20:53 Pulse Ox 99 07/14/20 20:53 Body Mass Index 24.7 Vital signs have been reviewed as appeared to be correct. Blood pressure normal. Heart rate normal. Respiration rate normal. Temperature normal. Oxygen saturation normal. Appearance: Alert. Oriented X3. No acute distress. Head: Normal external exam. Normocephalic. Atraumatic. No Horan signs noted. No raccoon eyes noted Eyes: Eyelid exam upper and lower bilaterally is unremarkable. Sclera or erythema on the right side, no discharge, visual acuity 20/30 on the right side, 20/25 left-side, pupil is 3 mm reactive bilaterally, IUP in the right 14/in the left 12 (was measured several times). No fluorescein corneal uptake bilaterally. ENT: TM's Normal. Pharynx normal. Uvula midline. Moist mucous membranes. No trismus noted. No drooling noted. No muffled voice noted. Tenderness over right maxillary sinuses and right frontal sinus. Neck: Normal inspection. Neck supple. FROM. No adenopathy. Thyroid Normal. No meningeal signs. No neck mass noted. CVS: Normal heart rate and rhythm. Heart sound normal. No murmurs noted. Pulses normal throughout. Respiratory: No respiratory distress. Painless inspiration. Breath sounds normal. No wheezes/rales/rhonchi noted. Chest nontender. No accessory muscle usage noted or decreased air movement noted. Abdomen: Soft and nontender. Bowel sounds normal in all 4 quadrants. No distention noted. No organomegaly noted. No visible injury noted. Back: No CVA tenderness. Full range of motion noted. Skin: Skin warm and dry. Normal skin color. Normal skin turgor. No rashes/lesions/lacerations noted. Extremities: No lower extremity edema. Extremities exhibit normal range of motion. Extremities nontender. Neuro: Oriented X 3. No motor deficit. No sensory deficit. Reflexes normal. Course Course Course Narrative: 25-year-old female came in with right eye/right year pain since yesterday, physical exam is consistent with right maxillary sinusitis. And right mild conjunctivitis. Will discharge the patient was Augmentin/Cipro eyedrops. Discharge Plan Discharge Clinical Impression: Acute maxillary sinusitis Qualifiers: Recurrence: not specified as recurrent Qualified Code(s): J01.00 - Acute maxillary sinusitis, unspecified Conjunctivitis Qualifiers: Conjunctivitis type: unspecified Patient Disposition: Home, Self-Care Instructions: Sinusitis (ED), Conjunctivitis (ED) Prescriptions: New amoxicillin-pot clavulanate [Augmentin] 500-125 mg tablet 1 tab PO BID Qty: 14 RF: 0 ciprofloxacin HCl 0.3 % drops See Rx Instructions .ROUTE .COMPLEX Qty: 10 RF: 0 No Action omeprazole magnesium [Prilosec OTC] 20 mg tablet,delayed release (DR/EC) 20 mg PO BID Qty: 60 RF: 0 oxycodone 5 mg tablet 5 mg PO Q6H PRN (Reason: pain) Qty: 14 RF: 0 Referrals: [facility] [Primary Care Provider] - 2 days
[2020-07-14] MEDS: Amoxicillin/Potassium Clav 500 MG TABLET PO (22:15)
== END 2020-07-14 22:19 | disposition home or self-care (01) ==
PROVIDERS: Emergency Provider Emergency Medicine
DX: J01.00 Acute maxillary sinusitis, unspecified (principal); H10.9 Unspecified conjunctivitis
CPT/HCPCS: 99283; 99284

== ENCOUNTER 2020-09-28 07:41 | Emergency (ER) | payer MEDICAID, SELFPAY ==
[2020-09-28 07:54] VITALS: BP 122/66; PULSE 90; RESP 18; TEMP 36.9; O2SAT 98; BMI 25.4
--- NOTE | 2020-09-28 07:57 | ED.FEMALEGU ---
HPI - Female Genitourinary General Chief complaint: Urogenital-Female Stated complaint: urinary problem Time Seen by Provider: 09/28/20 07:57 Source: patient Mode of arrival: ambulatory Limitations: no limitations History of Present Illness HPI Narrative: patinet with pelvic pain for one week, dysuria, patient noticed slight blood on the toilet paper. LMP September 18, no vaginal discharge, no fever, slight lumbar pain MD elicited complaint: dysuria Onset (ago): week(s) Severity: moderate Consistency: intermittent Vaginal discharge: none Vaginal bleeding: none Urinary symptoms: Dysuria, Urgency and Frequency Relieving factors: none Treatment prior to arrival: none Patient : No Related Data Previous Rx's Medication Instructions Recorded omeprazole magnesium [Prilosec OTC] 20 mg PO BID #60 tab 03/04/20 oxycodone 5 mg PO Q6H PRN #14 tab 03/05/20 amoxicillin-pot clavulanate 1 tab PO BID #14 tab 07/14/20 [Augmentin] ciprofloxacin HCl See Rx Instructions .ROUTE 07/14/20 .COMPLEX #10 ml cephalexin 500 mg PO Q6H 5 Days #20 cap 09/28/20 Allergies Allergy/AdvReac Type Severity Reaction Status Date / Time No Known Allergies Allergy Verified 07/14/20 20:53 Review of Systems Constitutional: Constitutional: Reports no additional constitutional complaints Eyes: Eyes: Reports no additional eye complaints ENT: Denies dizziness Cardiovascular: Cardiovascular: Reports no additional cardiovascular complaints Respiratory: Respiratory: Reports as per HPI Gastrointestinal: Gastrointestinal: Reports no additional gastrointestinal complaints Genitourinary: Genitourinary: Reports no additional female genitourinary complaints Musculoskeletal: Musculoskeletal: Reports no additional musculoskeletal complaints Integumentary/Breasts: Skin/Breast: Denies rash Neurologic: Reports system reviewed and no additional complaints, except as documented, Denies dizziness and Denies Sensory deficit (Neuro) Psychiatric: Psychiatric: Denies anxiety PMFSH Past Medical History Medical History No active medical problems Social History Social History Housing: Apartment Do you presently have visiting nurse or other home services: No Alcohol intake: never Advance Directives: Yes Advance Directives Information Provided: Yes Advance Directives on File: No Patient : No service: No Current occupational status: unemployed Physical Exam Vital Signs: Vital Signs: Last Vital Signs Temp 98.4 F 09/28/20 08:19 Pulse 91 09/28/20 08:19 Resp 16 09/28/20 08:19 BP 112/70 09/28/20 08:19 Pulse Ox 99 09/28/20 08:19 Body Mass Index 25.4 Const: General: healthy appearing Nutritional Appearance: average body habitus Orientation/consciousness: oriented to person and patient oriented x3 Limitations: no limitations HENMT: Head: Yes normal to inspection Ears: external ears normal General nose exam: Normal external nose present Mouth: Normal oral and palatal mucosa present and oropharynx normal Throat: Yes posterior oropharynx normal Eyes: General: appearance normal, both eyes and all related structures Neck: Other: supple Neck: Yes normal visual inspection Chest: Chest palpation & inspection: normal inspection of the chest Resp: Auscultation: clear to auscultation bilaterally Cardio: Jugular venous distension: no JVD Rate: regular rate Rhythm: regular rhythm Heart sounds: S1 normal heart sound present and S2 normal heart sound present GI: Inspection: Yes normal to inspection Palpation (GI): Soft to palpation, nontender and No hepatosplenomegaly present Auscultation: normal bowel sounds : General: Yes no CVA tenderness Back/Spine/Pelvis: Back: no CVA tenderness Skin: General skin exam: no rashes or lesions noted Neuro: General: oriented to person and patient oriented x3 Cranial nerves: Yes CN's II-XII intact bilaterally Motor exam (neuro): 5/5 motor strength present throughout Sensory Exam: No Sensory deficit (Neuro) Extrem: General: Yes normal to inspection Psych: Appearance: grossly normal Course Course Course Narrative: patient with UTI will dc on keflex MDM - Female Genitourinary Lab Data Labs: Lab Results 09/28/20 09/28/20 Range/Units 08:16 08:16 Urine Color YELLOW Urine Appearance HAZY Urine pH 6.0 (5.0-8.0) Ur Specific [place] >= 1.030 H (1.005-1.025) Urine Protein TRACE (NEG-TRACE) MG/DL Urine Glucose (UA) NEG (NEG) MG/DL Urine Ketones NEG (NEG) MG/DL Urine Blood 1+ H (NEG) Urine Nitrite NEG (NEG) Ur Leukocyte Esterase 1+ H (NEG) Urine RBC 1-4 (0) /HPF Urine WBC 15-29 H (0-4) /HPF Ur Squamous Epith Cells 2+ /LPF Urine Bacteria TRACE /LPF Urine Mucus 1+ /LPF Urine Test NEGATIVE (NEGATIVE) Discharge Plan Discharge Clinical Impression: Urinary tract infection Qualifiers: Urinary tract infection type: acute cystitis Hematuria presence: without hematuria Qualified Code(s): N30.00 - Acute cystitis without hematuria Patient Disposition: Home, Self-Care Instructions: Urinary Tract Infection in Women (ED), Dysuria (ED) Prescriptions: New cephalexin 500 mg capsule 500 mg PO Q6H 5 Days Qty: 20 RF: 0 No Action amoxicillin-pot clavulanate [Augmentin] 500-125 mg tablet 1 tab PO BID Qty: 14 RF: 0 ciprofloxacin HCl 0.3 % drops See Rx Instructions .ROUTE .COMPLEX Qty: 10 RF: 0 omeprazole magnesium [Prilosec OTC] 20 mg tablet,delayed release (DR/EC) 20 mg PO BID Qty: 60 RF: 0 oxycodone 5 mg tablet 5 mg PO Q6H PRN (Reason: pain) Qty: 14 RF: 0 Referrals: Physician,Unknown [Primary Care Provider] - 1 week Interventions: ED Discharge Assessment Last Done: 09/28/20 10:25 Discharge Date/Time: 09/28/20 10:26
[2020-09-28 08:19] VITALS: BP 112/70; PULSE 91; RESP 16; TEMP 36.9; O2SAT 99
[2020-09-28 08:22] LABS: Appearance Urine HAZY; Color Urine YELLOW; Glucose Urine UA NEG (NEG); Leukocyte Esterase Urine 1+ (NEG); Nitrite Urine NEG (NEG); Specific Gravity - Urine >= 1.030 (1.005-1.025); UACC Culture Trigger YES; Urine Blood 1+ (NEG); Urine Ketones NEG (NEG); Urine Protein TRACE MG/DL (NEG-TRACE)
[2020-09-28 08:23] LABS: UPreg QC Valid YES; Urine Pregnancy NEGATIVE (NEGATIVE)
[2020-09-28 08:35] LABS: Bacteria Urine TRACE /LPF; Mucus Urine 1+ /LPF; Squamous Epithelial Cell Urine 2+ /LPF; UACC CULT YES
[2020-09-28] MEDS: cephALEXin 500 MG CAPSULE PO (10:04)
== END 2020-09-28 10:26 | disposition home or self-care (01) ==
PROVIDERS: Emergency Provider Emergency Medicine
DX: N39.0 Urinary tract infection, site not specified (principal)
CPT/HCPCS: 81001; 81025; 87086; 87088; 87186; 99283